=== PATIENT | male | born 1970 | race Caucasian/White ===

== ENCOUNTER → 2016-09-11 | Outpatient (CLI) | payer BC ==
[2016-09-11 08:25] LABS: Basophils % (A) 0 %; CH 25.9; CHCM 31.9; Eosinophils # (A) 0.1 k/uL (0-0.7); Eosinophils % (A) 1 %; HCT 44.3 % (39.0-53.0); HDW 2.79; HGB 14.2 gm/dL (13.0-17.5); Hypochromasia Slight; Luc # (Auto) 0.21; Luc % (Auto) 2; Lymphocytes # (A) 2.2 k/uL (1.0-4.8); Lymphocytes % (A) 22 %; MCH 26.1 pg (25.0-35.0); MCHC 32.1 g/dL (31.0-37.0); MCV 81.5 fL (80.0-100.0); Mean Platelet Volume 6.9; Monocytes # (A) 0.6 k/uL (0-1.0); Monocytes % (A) 6 %; Neutrophils # (A) 6.7 k/uL (1.3-7.7); Neutrophils % (A) 69 %; RBC 5.43 m/uL (4.30-5.90); RDW 14.3 % (11.5-15.5); WBC 9.8 k/uL (3.8-10.6); WBC (Perox) 9.27
[2016-09-11 08:39] LABS: ALT 38 U/L (21-72); AST 25 U/L (17-59); Alkaline Phosphatase 84 U/L (38-126); Anion Gap 9 mmol/L; Blood Urea Nitrogen 23 mg/dL (9-20); Carbon Dioxide 28 mmol/L (22-30); Chloride 103 mmol/L (98-107); Cholesterol 175 mg/dL (<200); Glucose 131 mg/dL (74-99); HDL Cholesterol 38 mg/dL (40-60); Non-African American GFR(MDRD) >60 (>60 ml/min/1.73 sqM); Potassium 4.7 mmol/L (3.5-5.1); Sodium 140 mmol/L (137-145); Total Bilirubin 1.4 mg/dL (0.2-1.3); Total Protein 7.6 g/dL (6.3-8.2); Triglycerides 122 mg/dL (<150)
[2016-09-11 12:41] LABS: Hemoglobin A1C 6.8 % (4.2-6.1)
== END | disposition home or self-care (01) ==
LOC: LABWHC1 07:03
PROVIDERS: ATTEND Internal Medicine
DX: Z00.00 Encounter for general adult medical examination without abnormal findings (principal); E11.9 Type 2 diabetes mellitus without complications; I10 Essential (primary) hypertension; M10.9 Gout, unspecified; M19.90 Unspecified osteoarthritis, unspecified site
CPT/HCPCS: 36415; 80053; 80061; 83036; 84439; 84443; 85025

== ENCOUNTER → 2017-09-16 | Outpatient (CLI) | payer BC ==
[2017-09-16 08:05] LABS: Basophils % (A) 0 %; Eosinophils # (A) 0.1 k/uL (0-0.7); Eosinophils % (A) 1 %; HCT 42.3 % (39.0-53.0); HGB 13.6 gm/dL (13.0-17.5); Lymphocytes # (A) 2.4 k/uL (1.0-4.8); Lymphocytes % (A) 36 %; MCH 25.2 pg (25.0-35.0); MCHC 32.2 g/dL (31.0-37.0); MCV 78.2 fL (80.0-100.0); Mean Platelet Volume 6.2; Monocytes # (A) 0.4 k/uL (0-1.0); Monocytes % (A) 6 %; Neutrophils # (A) 3.5 k/uL (1.3-7.7); Neutrophils % (A) 54 %; Platelet Count 237 k/uL (150-450); RBC 5.41 m/uL (4.30-5.90); RDW 14.8 % (11.5-15.5); WBC 6.6 k/uL (3.8-10.6)
[2017-09-16 08:22] LABS: ALT 43 U/L (21-72); AST 28 U/L (17-59); Albumin 4.6 g/dL (3.5-5.0); Alkaline Phosphatase 64 U/L (38-126); Anion Gap 12 mmol/L; Blood Urea Nitrogen 26 mg/dL (9-20); Calcium 9.8 mg/dL (8.4-10.2); Carbon Dioxide 28 mmol/L (22-30); Chloride 102 mmol/L (98-107); Cholesterol 148 mg/dL (<200); Glucose 125 mg/dL (74-99); HDL Cholesterol 37 mg/dL (40-60); LDL Cholesterol,Calculated 98 mg/dL (0-99); Potassium 4.9 mmol/L (3.5-5.1); Sodium 142 mmol/L (137-145); Total Bilirubin 1.1 mg/dL (0.2-1.3); Triglycerides 65 mg/dL (<150)
[2017-09-16 08:31] LABS: T4, Free (Free Thyroxine) 1.14 ng/dL (0.78-2.19)
[2017-09-16 12:53] LABS: Hemoglobin A1C 6.7 % (4.0-6.0)
== END | disposition home or self-care (01) ==
LOC: LABWHC1 07:08
PROVIDERS: ATTEND Internal Medicine
DX: Z00.00 Encounter for general adult medical examination without abnormal findings (principal); E11.9 Type 2 diabetes mellitus without complications; I10 Essential (primary) hypertension; E78.5 Hyperlipidemia, unspecified
CPT/HCPCS: 36415; 80053; 80061; 83036; 84439; 84443; 85025

== ENCOUNTER → 2018-09-08 | Outpatient (CLI) | payer BC ==
[2018-09-08 08:42] LABS: Basophils % (A) 0 %; Eosinophils # (A) 0.1 k/uL (0-0.7); Eosinophils % (A) 1 %; HCT 43.7 % (39.0-53.0); HGB 13.7 gm/dL (13.0-17.5); Lymphocytes # (A) 2.2 k/uL (1.0-4.8); Lymphocytes % (A) 31 %; MCH 24.9 pg (25.0-35.0); MCHC 31.4 g/dL (31.0-37.0); MCV 79.3 fL (80.0-100.0); Mean Platelet Volume 6.8; Monocytes # (A) 0.5 k/uL (0-1.0); Monocytes % (A) 6 %; Neutrophils # (A) 4.3 k/uL (1.3-7.7); Neutrophils % (A) 59 %; Platelet Count 290 k/uL (150-450); RDW 14.7 % (11.5-15.5); WBC 7.3 k/uL (3.8-10.6)
[2018-09-08 17:18] LABS: Albumin 4.6 g/dL (3.80-4.90); Albumin/Globulin Ratio 2.3 (1.60-3.17); Anion Gap 9.2 mmol/L (4.00-12.00); Calcium 9.8 mg/dL (8.7-10.3); Carbon Dioxide 24.8 mmol/L (21.6-31.8); Potassium 4.6 mmol/L (3.5-5.5); Total Protein 6.6 g/dL (6.2-8.2)
[2018-09-08 17:27] LABS: T4, Free (Free Thyroxine) 1.1 ng/dL (0.80-1.80)
[2018-09-08 19:11] LABS: Hemoglobin A1C 6.5 % (4.0-6.0)
== END | disposition home or self-care (01) ==
LOC: LABWHC1 07:40
PROVIDERS: ATTEND Internal Medicine
DX: Z00.00 Encounter for general adult medical examination without abnormal findings (principal); E78.00 Pure hypercholesterolemia, unspecified; I10 Essential (primary) hypertension; E11.9 Type 2 diabetes mellitus without complications; M19.90 Unspecified osteoarthritis, unspecified site; M10.9 Gout, unspecified; Z12.5 Encounter for screening for malignant neoplasm of prostate
CPT/HCPCS: 84439; 80061; 80053; 84443; 85025; 83036; 36415; G0103

== ENCOUNTER → 2019-03-29 | Outpatient (CLI) | payer BC ==
[2019-03-29 10:37] LABS: HGB 14.1 gm/dL (13.0-17.5); MCH 26.4 pg (25.0-35.0); MCHC 32.7 g/dL (31.0-37.0); MCV 80.6 fL (80.0-100.0); Mean Platelet Volume 7.5; Platelet Count 317 k/uL (150-450); RBC 5.34 m/uL (4.30-5.90); RDW 13.7 % (11.5-15.5); WBC 12.7 k/uL (3.8-10.6)
[2019-03-29 10:43] LABS: Potassium 4.8 mmol/L (3.5-5.1)
== END | disposition home or self-care (01) ==
LOC: LABPAT 09:57
PROVIDERS: ATTEND Internal Medicine Interventional Cardiology
DX: Z01.812 Encounter for preprocedural laboratory examination (principal); R07.9 Chest pain, unspecified
CPT/HCPCS: 36415; 80051; 82565; 84520; 85027

== ENCOUNTER 2019-03-30 06:20 | Day surgery (SDC) | payer BC ==
[2019-03-30] MEDS ORDERED: ALPRAZolam 0.25 MG TAB PO PRN (06:22)
[2019-03-30] MEDS ORDERED: ASPIRIN 325 MG TAB PO STA (06:22)
[2019-03-30] MEDS ORDERED: NITROGLYCERIN SL TABS 0.4 MG TAB SUBLINGUAL PRN ×2 (06:22→08:34)
[2019-03-30] MEDS ORDERED: SODIUM CHLORIDE 0.9% 1,000 ML in EMPTY BAG 1 BAG IV ONE (06:22)
[2019-03-30] MEDS ORDERED: ATORVASTATIN 80 MG TAB PO STA (06:22)
[2019-03-30] MEDS ORDERED: ALPRAZolam 0.5 MG TAB PO PRN (06:22)
[2019-03-30] MEDS ORDERED: ASPIRIN 81 MG ONE (06:46)
[2019-03-30 07:16] LABS: Glucose,Whole Blood 116 mg/dL (75-99)
[2019-03-30] MEDS ORDERED: LIDOCAINE 1% INJ 10MG/ML (20 ML MDV) ONE (07:30)
[2019-03-30] MEDS ORDERED: VERAPAMIL 2.5 MG/ML 2 ML AMP ONE (07:30)
[2019-03-30] MEDS ORDERED: HEPARIN SODIUM 1,000 UN/ML (10ML VL) ONE (07:30)
[2019-03-30] MEDS ORDERED: fentaNYL (PF) 50 MCG/ML 2 ML AMP ONE (07:30)
[2019-03-30] MEDS ORDERED: fentaNYL (PF) 50 MCG/ML 2 ML AMP IVP ONE (07:43)
[2019-03-30] MEDS ORDERED: LIDOCAINE 1% INJ 10MG/ML (20 ML MDV) SQ ONE (07:43)
[2019-03-30] MEDS ORDERED: PRASUGREL 10 MG TAB ONE (08:02)
[2019-03-30] MEDS ORDERED: BIVALIRUDIN BOLUS 250 MG/50 ML IV ONE (08:02)
[2019-03-30] MEDS ORDERED: BIVALIRUDIN 250 MG in SODIUM CHLORIDE 0.9% 50 ML IV ONE (08:03)
[2019-03-30] MEDS ORDERED: PRASUGREL 10 MG TAB PO ONE (08:03)
[2019-03-30] MEDS ORDERED: MIDAZOLAM 2 MG/2 ML VIAL IV ONE (08:04)
[2019-03-30] MEDS ORDERED: IOPAMIDOL-370 125ML BTL INJ ONE (08:11)
[2019-03-30] MEDS ORDERED: IOPAMIDOL-370 100ML BTL INJ ONE (08:28)
[2019-03-30] MEDS ORDERED: ATROPINE SULFATE 0.1 MG/ML 10ML SYRINGE IV PRN (08:34)
[2019-03-30] MEDS ORDERED: MAG HYDROX/AL HYDROX/SIMETH 30 ML CUP PO PRN (08:34)
[2019-03-30] MEDS ORDERED: RX INFO: IV CONTRAST WAS GIVEN 1 EACH MISC MISCELLANE PRN (08:34)
[2019-03-30] MEDS ORDERED: ZOLPIDEM 5 MG TAB PO PRN (08:34)
[2019-03-30] MEDS ORDERED: SODIUM CHLORIDE 0.9% 1,000 ML IV SCH (08:45)
--- NOTE | 2019-03-30 09:16 | CC ---
CARDIAC CATHETERIZATION REPORT Mr. Macias is a 48-year-old male with known history of hypertension, hyperlipidemia, diabetes mellitus, and a family history of premature coronary disease who started this past weekend complaining of chest discomfort, exertional in pattern. In view of that, recommendation was made regarding cardiac catheterization. The procedure as well as the risks and complications were discussed with the patient who is in full understanding and agreement. PROCEDURE: Patient was brought to the labor and delivery registered nurse in a fasting semi-sedated state after receiving fentanyl and Benadryl and achieving moderate conscious sedated state. Using Xylocaine anesthesia in the Seldinger technique, a 6-Argentine sheath was introduced in the right radial artery. Selective right and left coronary angiography performed using 5-Argentine 3.5 bend right and left Jake catheter. Multiple views of the coronary artery including hemiaxial views were obtained. Following that, the left Jake catheter was used to cross the aortic valve and left ventricular end-diastolic pressure was performed. Following that, the catheter was removed. Images were reviewed. FINDINGS: LEFT MAIN: This is a large-size vessel bifurcating in left circumflex, left anterior descending artery. Left main coronary artery has no evidence of high-grade stenosis. LEFT ANTERIOR DESCENDING ARTERY: This is a large-sized vessel reaching toward the apex with a wraparound apex segment giving rise to a large diagonal branch in mid segment. The left anterior descending artery and the mid segment after the takeoff of the first septal childcare administrator has a 95% eccentric lesion. The rest of the vessel has no high-grade stenosis. LEFT CIRCUMFLEX: This is a codominant vessel large in caliber giving rise to 2 obtuse marginal branches distally small PDA and PLV. The left circumflex proximally has a 20% plaque. The rest of the vessel has no high-grade stenosis. RIGHT CORONARY ARTERY: This is a codominant vessel, subtotally occluded in mid segment prior to the bifurcation of PDA. There is ipsilateral collaterals and bridging collaterals noted. There is also contralateral collaterals noted. The distal vessel appears to be small in caliber. LEFT VENTRICULOGRAM: Left ventriculogram was not performed. HEMODYNAMICS: There was no gradient across the aortic valve. The left ventricular end- diastolic pressure was 14 to 16 mmHg. CONCLUSION: 1. Critical stenosis involving the mid left anterior descending artery. 2. Chronically subtotally occluded right coronary artery in the mid segment with ipsilateral and contralateral collaterals. RECOMMENDATION: In view of finding anatomy, I recommend proceeding with angioplasty and stenting of the LAD. The procedure as well as the risks and the complications were discussed with the patient who is in full understanding and agreement. MMRUI / IJN: [id number] /
--- NOTE | 2019-03-30 09:22 | PTCA ---
PERCUTANEOUSTRANS CORORONARY ANGIOGRAPHY Mr. Macias is a 48-year-old male with known history of hypertension, hyperlipidemia, diabetes mellitus, who presented with new onset angina pectoris, underwent cardiac catheterization, was found to have critical stenosis involving the mid LAD. In view of that, recommendation was made regarding angioplasty and stenting. The procedure as well as risks and the complications were discussed with the patient who is in full understanding and agreement. PROCEDURE: Using a 6-Tajik FL3.5 guiding catheter after cannulating the left main a 0.014 balanced medium weight J-wire was advanced across the lesion, positioned distally. Following that, a 3.0 x 12 mm Trek balloon was advanced and one inflation at 8 atmospheres was done. Following that, a 3.5 x 18 mm Xience Sherri stent was deployed, postdilated at 16 atmospheres. Following that, the balloon was removed and a 3.75 x 12 mm NC Trek balloon was advanced and one inflation at 14 atmospheres was done. Following that, the balloon was removed and a 4.0 x 12 mm NC Trek balloon was advanced and inflation at 12 atmospheres was done. After the last inflation, after appropriate wait, the balloon and the guidewire were withdrawn back in the guiding catheter. Images were obtained, repeated. Those images reveal stable successful stenting. At that point, the guiding catheter, the balloon and the guidewire were removed. The sheath was removed. Hemostasis was obtained with deployment of a TR band. There was no immediate complication. Patient was returned to his room in stable condition. Of note, the patient received Angiomax per protocol as well as oral loading dose of Effient. He has received intra-arterial verapamil. He had no chest discomfort or significant EKG changes with the inflations. RESULTS: Successful stenting of the mid left anterior descending artery with reduction of stenosis from 95% to 0%. RECOMMENDATION: Patient will be continued on aspirin, Effient, beta garret, MJ inhibitor, statin. He will be further evaluated down the road to undergo attempt to recanalize the subtotally occluded chronic RCA. Those findings and recommendation were discussed with the patient and his family and they are in full understanding and agreement. Duration of procedure is 45 minutes. MMODL / IJN: [id number] /
--- NOTE | 2019-03-30 09:26 | LTR ---
March 30, 2019 Re: Asaf Macias Dear Dr. Crenshaw: I had the opportunity to perform cardiac catheterization and coronary angioplasty and stenting on Mr. Macias at [facility] on the 30 of March and a full copy of the procedure note will be forwarded to you. In brief, he was found to have a critical stenosis involving the mid LAD and subtotal chronic occlusion of the RCA. He underwent successful stenting of the LAD and he will be further evaluated down the road regarding the need to undergo revascularization of his RCA. I will keep you updated on his progress. Thank you again for allowing me the opportunity to participate in his care. Please feel free to call for any questions. Sincerely yours, MD SANJEEV Shea / TEJAS: [id number] /
[2019-03-30 16:59] LABS: Glucose,Whole Blood 92 mg/dL (75-99)
[2019-03-30] MEDS: METOPROLOL TARTRATE 50 MG TAB PO SCH (20:24)
[2019-03-30 20:44] LABS: Glucose,Whole Blood 153 mg/dL (75-99)
[2019-03-30 22:07] VITALS: RESP 18
[2019-03-31 06:14] LABS: African American GFR (CKD) >90 (>60 ml/min/1.73 sqM); Anion Gap 8 mmol/L; Blood Urea Nitrogen 18 mg/dL (9-20); Calcium 9.7 mg/dL (8.4-10.2); Carbon Dioxide 26 mmol/L (22-30); Chloride 104 mmol/L (98-107); Glucose 126 mg/dL (74-99); Non-African American GFR(CKD) 89 (>60 ml/min/1.73 sqM); Potassium 4.4 mmol/L (3.5-5.1); Sodium 138 mmol/L (137-145)
[2019-03-31 06:32] LABS: Glucose,Whole Blood 119 mg/dL (75-99)
[2019-03-31] MEDS: METOPROLOL TARTRATE 50 MG TAB PO SCH (08:55)
[2019-03-31] MEDS ORDERED: LINAGLIPTIN 5 MG TABLET PO SCH (09:00)
[2019-03-31] MEDS ORDERED: amLODIPine 10 MG TAB PO SCH (09:00)
[2019-03-31] MEDS ORDERED: ATORVASTATIN 80 MG TAB PO SCH (09:00)
[2019-03-31] MEDS ORDERED: LISINOPRIL 10 MG TAB PO SCH (09:00)
[2019-03-31] MEDS ORDERED: PRASUGREL 10 MG TAB PO SCH (09:00)
[2019-03-31] MEDS ORDERED: ASPIRIN 81 MG PO SCH (09:00)
[2019-03-31 10:16] VITALS: BP 111/61; PULSE 73; TEMP 97.8
[2019-03-31 11:05] VITALS: BMI 32.1
[2019-03-31 11:31] LABS: Glucose,Whole Blood 112 mg/dL (75-99)
--- NOTE | 2019-03-31 14:50 | PN ---
PROGRESS NOTE Mr. Macias is a 48-year-old male who presented with symptoms of new onset angina pectoris, underwent cardiac catheterization, was found to have chronically subtotal occlusion of the right coronary artery with critical stenosis in the mid LAD. Underwent successful stenting of the LAD. He is doing well this morning, ambulating without difficulty. Denying any chest pain. No dizziness. No palpitation. He remains in sinus mechanism. Continues to be on aspirin once a day, amlodipine 10 mg daily, Lipitor 80 mg daily, Tradjenta 5 mg daily, Zestril 10 mg daily, metoprolol tartrate 50 mg twice a day, Effient 10 mg daily. PHYSICAL EXAMINATION: Blood pressure 111/60 with a heart rate in the 60s. LUNGS: Clear. HEART: Regular rate and rhythm S1, S2. No S3. No rub. ABDOMEN: Soft, nontender. EXTREMITIES: No edema. Right radial pulse is intact. EKG revealed no evidence of acute changes. BUN and creatinine of 18 and 0.99. IMPRESSION: 1. Status post stenting of the left anterior descending coronary artery. 2. Chronically subtotal occlusion of the right coronary artery. 3. Hypertension. 4. Hyperlipidemia. 5. Diabetes mellitus. RECOMMENDATIONS: Patient will be discharged home today and followed as an outpatient. MMODL / IJN: [id number] /
== END 2019-03-31 11:35 | disposition home or self-care (01) ==
LOC: CATHCVL 06:20 → 3SCARD 08:26 → CATHCVL 03-31 11:35
PROVIDERS: ATTEND Internal Medicine Interventional Cardiology
DX: I25.119 Atherosclerotic heart disease of native coronary artery with unspecified angina pectoris (principal); E11.9 Type 2 diabetes mellitus without complications; I10 Essential (primary) hypertension; E78.2 Mixed hyperlipidemia; Z82.49 Family history of ischemic heart disease and other diseases of the circulatory system; Z79.84 Long term (current) use of oral hypoglycemic drugs; Z79.899 Other long term (current) drug therapy
CPT/HCPCS: 80048; 85347; 93458; C1874

== ENCOUNTER → 2019-10-12 | Outpatient (CLI) | payer BC ==
[2019-10-12 08:41] LABS: Basophils # (A) 0.1 k/uL (0-0.2); Basophils % (A) 1 %; Eosinophils # (A) 0.1 k/uL (0-0.7); Eosinophils % (A) 1 %; HCT 43.7 % (39.0-53.0); HGB 13.7 gm/dL (13.0-17.5); Lymphocytes # (A) 2.7 k/uL (1.0-4.8); Lymphocytes % (A) 28 %; MCH 25.8 pg (25.0-35.0); MCHC 31.3 g/dL (31.0-37.0); MCV 82.5 fL (80.0-100.0); Mean Platelet Volume 7.3; Monocytes # (A) 0.6 k/uL (0-1.0); Monocytes % (A) 6 %; Neutrophils % (A) 62 %; Platelet Count 273 k/uL (150-450); RDW 13.6 % (11.5-15.5); WBC 9.7 k/uL (3.8-10.6)
[2019-10-12 15:14] LABS: African American GFR (CKD) 101.3 (60.0-200.0); Albumin 4.4 g/dL (3.80-4.90); Anion Gap 7.9 mmol/L (4.00-12.00); Calcium 9.7 mg/dL (8.7-10.3); Carbon Dioxide 27.1 mmol/L (21.6-31.8); Chol/HDL Ratio 4.79; Globulin 2.2 g/dL (1.6-3.3); Non-African American GFR(CKD) 87.4 (60.0-200.0); Potassium 4.4 mmol/L (3.5-5.5); Total Bilirubin 1.2 mg/dL (0.3-1.2); Total Protein 6.6 g/dL (6.2-8.2)
[2019-10-12 15:22] LABS: T4, Free (Free Thyroxine) 1.2 ng/dL (0.80-1.80)
[2019-10-12 16:57] LABS: Hemoglobin A1C 7.3 % (4.0-6.0)
== END | disposition home or self-care (01) ==
LOC: LABWHC1 08:00
PROVIDERS: ATTEND Internal Medicine
DX: Z00.00 Encounter for general adult medical examination without abnormal findings (principal); I20.9 Angina pectoris, unspecified; I10 Essential (primary) hypertension; M19.90 Unspecified osteoarthritis, unspecified site; E11.9 Type 2 diabetes mellitus without complications; M10.9 Gout, unspecified; E78.00 Pure hypercholesterolemia, unspecified
CPT/HCPCS: 84439; 80061; 80053; 84443; 85025; 83036; 36415; G0103

== ENCOUNTER → 2020-02-20 | Outpatient (CLI) | payer BC ==
[2020-02-20 15:24] LABS: Chol/HDL Ratio 4.4; LDL Cholesterol,Calculated 66.8 mg/dL (0.0-131.0); VLDL Calculation 18.2 mg/dL (5.00-40.00)
== END | disposition home or self-care (01) ==
LOC: LABWHC1 07:47
PROVIDERS: ATTEND Nurse Practitioner Adult Health
DX: E78.2 Mixed hyperlipidemia (principal)
CPT/HCPCS: 36415; 80061; 84450; 84460

== ENCOUNTER → 2020-07-02 | Outpatient (CLI) | payer BC ==
[2020-07-03 05:06] LABS: African American GFR (CKD) 100.6 (60.0-200.0); Albumin 4.9 g/dL (3.80-4.90); Albumin/Globulin Ratio 2.45 (1.60-3.17); Anion Gap 12.3 mmol/L (4.00-12.00); Calcium 9.9 mg/dL (8.7-10.3); Carbon Dioxide 24.7 mmol/L (21.6-31.8); Chol/HDL Ratio 4.75; LDL Cholesterol,Calculated 64.2 mg/dL (0.0-131.0); Non-African American GFR(CKD) 86.8 (60.0-200.0); Potassium 4.5 mmol/L (3.5-5.5); Total Bilirubin 1.2 mg/dL (0.3-1.2); Total Protein 6.9 g/dL (6.2-8.2); VLDL Calculation 25.8 mg/dL (5.00-40.00)
== END | disposition home or self-care (01) ==
LOC: LABWHC1 10:04
PROVIDERS: ATTEND Nurse Practitioner Adult Health
DX: E78.2 Mixed hyperlipidemia (principal); I10 Essential (primary) hypertension
CPT/HCPCS: 36415; 80053; 80061

== ENCOUNTER → 2021-01-23 | Outpatient (CLI) | payer BC ==
[2021-01-23 11:14] LABS: Basophils # (A) 0.03 X 10*3/uL (0.00-0.10); Basophils % (A) 0.4 %; Eosinophils # (A) 0.09 X 10*3/uL (0.04-0.35); Eosinophils % (A) 1.1 %; HCT 43.4 % (39.6-50.0); HGB 13.8 g/dL (13.0-17.0); Lymphocytes # (A) 2.38 X 10*3/uL (0.90-5.00); Lymphocytes % (A) 28.5 %; MCH 25.1 pg (27.0-32.0); MCHC 31.8 g/dL (32.0-37.0); MCV 79.1 fL (80.0-97.0); Mean Platelet Volume 10.5 fL (9.5-12.2); Monocytes # (A) 0.66 X 10*3/uL (0.20-1.00); Monocytes % (A) 7.9 %; Neutrophils # (A) 5.16 X 10*3/uL (1.80-7.70); Neutrophils % (A) 61.6 %; Platelet Count 306 X 10*3/uL (140-440); RBC 5.49 X 10*6/uL (4.40-5.60); RDW 13.8 % (11.5-14.5); WBC 8.36 X 10*3/uL (4.50-10.00)
[2021-01-23 19:26] LABS: African American GFR (CKD) 109.6 (60.0-200.0); Albumin 4.5 g/dL (3.8-4.9); Albumin/Globulin Ratio 1.91 (1.60-3.17); Anion Gap 17.9 mmol/L (4.00-12.00); BUN/Creat Ratio 26.85 Ratio (12.00-20.00); Carbon Dioxide 18.6 mmol/L (21.6-31.8); Chol/HDL Ratio 5.29 Ratio; Globulin 2.4 g/dL (1.6-3.3); HDL Cholesterol 24.2 mg/dL (40.00-60.00); LDL Cholesterol,Calculated 59.4 mg/dL (0.0-131.0); Non-African American GFR(CKD) 94.6 (60.0-200.0); Potassium 4.9 mmol/L (3.5-5.5); Prostate Specific Antigen 0.5 ng/mL (0.00-3.50); T4, Free (Free Thyroxine) 1.25 ng/dL (0.800-1.800); Total Bilirubin 0.7 mg/dL (0.30-1.20); Total Protein 6.9 g/dL (6.2-8.2); VLDL Calculation 44.4 mg/dL (5.00-40.00)
== END | disposition home or self-care (01) ==
LOC: LABWHC1 07:03
PROVIDERS: ATTEND Internal Medicine
DX: Z00.00 Encounter for general adult medical examination without abnormal findings (principal); I10 Essential (primary) hypertension; E78.2 Mixed hyperlipidemia
CPT/HCPCS: 36415; 80053; 80061; 83036; 84153; 84439; 84443; 85025

== ENCOUNTER → 2021-02-25 | Outpatient (CLI) | payer BC ==
[2021-02-25 17:54] LABS: Albumin 4.7 g/dL (3.8-4.9); Anion Gap 16.3 mmol/L (4.00-12.00); BUN/Creat Ratio 22.21 Ratio (12.00-20.00); Blood Urea Nitrogen 21.1 mg/dL (9.0-27.0); Calcium 9.8 mg/dL (8.7-10.3); Carbon Dioxide 20.6 mmol/L (21.6-31.8); Globulin 2.3 g/dL (1.6-3.3); Non-African American GFR(CKD) 92.3 (60.0-200.0); Potassium 5.1 mmol/L (3.5-5.5); Total Bilirubin 0.8 mg/dL (0.30-1.20)
[2021-02-26 13:27] LABS: C-Peptide 3.88 ng/mL (0.81-3.85)
== END | disposition home or self-care (01) ==
LOC: LABWHC1 10:03
PROVIDERS: ATTEND Internal Medicine Endocrinology, Diabetes & Metabolism
DX: E11.65 Type 2 diabetes mellitus with hyperglycemia (principal)
CPT/HCPCS: 36415; 80053; 84681

== ENCOUNTER → 2021-09-04 | Outpatient (CLI) | payer BC ==
[2021-09-04 11:17] LABS: ALT 28 U/L (10-49); AST 21 U/L (14-35); African American GFR (CKD) 102.8 (60.0-200.0); Albumin 4.5 g/dL (3.8-4.9); Albumin/Globulin Ratio 1.92 (1.60-3.17); Alkaline Phosphatase 78 U/L (41-126); BUN/Creat Ratio 18.85 Ratio (12.00-20.00); Blood Urea Nitrogen 18.4 mg/dL (9.0-27.0); Calcium 9.7 mg/dL (8.7-10.3); Carbon Dioxide 24.5 mmol/L (20.0-27.5); Chloride 102 mmol/L (96-109); Chol/HDL Ratio 3.77 Ratio; Globulin 2.4 g/dL (1.6-3.3); Glucose 140 mg/dL (70-110); LDL Cholesterol,Calculated 58.7 mg/dL (0.0-131.0); Non-African American GFR(CKD) 88.7 (60.0-200.0); Potassium 4.7 mmol/L (3.5-5.5); Sodium 139 mmol/L (135-145); Total Protein 6.9 g/dL (6.2-8.2); VLDL Calculation 17.68 mg/dL (5.00-40.00)
[2021-09-04 17:05] LABS: Urine Creatinine 65.7 mg/dL (39.0-259.0)
== END | disposition home or self-care (01) ==
LOC: LABWHC1 07:01
PROVIDERS: ATTEND Internal Medicine Endocrinology, Diabetes & Metabolism
DX: E11.65 Type 2 diabetes mellitus with hyperglycemia (principal)
CPT/HCPCS: 36415; 80053; 80061; 82043; 82570; 83036; 84443

== ENCOUNTER 2021-12-29 07:17 | Day surgery (SDC) | payer BC ==
[~2021-12-29 07:17] MED LIST: LACTATED RINGERS 1,000 ML IV SCH
[2021-12-29 07:39] VITALS: TEMP 97.8
[2021-12-29 07:47] LABS: Glucose,Whole Blood 130 mg/dL (70-110)
[2021-12-29] MEDS ORDERED: PROPOFOL 10 MG/ML 20 ML VIAL IV ONE (08:04)
--- NOTE | 2021-12-29 08:07 | P.GSHP ---
History of Present Illness H&P Date: 12/29/21 Chief Complaint: Colon cancer screening [id number] male here today for colonoscopy. He has not had one previously. No bowel complaints. No family history of colon cancer. Past Medical History Past Medical History: Cancer, Diabetes Mellitus, Hyperlipidemia, Hypertension Additional Past Medical History / Comment(s): skin cancer, hx gout History of Any Multi-Drug Resistant Organisms: None Reported Past Surgical History: Heart Catheterization With Stent, Hernia Repair, Joint Replacement Additional Past Surgical History / Comment(s): miguel hip replacements, heart cath with sent LAD-x1 03/30/2019 Past Anesthesia/Blood Transfusion Reactions: Previous Problems w/ Anesthesia, Postoperative Nausea & Vomiting (PONV) Additional Past Anesthesia/Blood Transfusion Reaction / Comment(s): trouble urinating after few of his surgeries Date of Last Stent Placement:: 2018 Smoking Status: Never smoker - Past Family History Father Family Medical History: Coronary Artery Disease (CAD), Diabetes Mellitus Additional Family Medical History / Comment(s): CABG x4 Mother Family Medical History: Congestive Heart Failure (CHF), Diabetes Mellitus Medications and Allergies Home Medications Medication Instructions Recorded Confirmed Type metFORMIN HCL [Glucophage] 1,000 mg PO BID 01/29/15 12/24/21 History Aspirin [Adult Low Dose Aspirin EC] 81 mg PO DAILY 03/29/19 12/29/21 History Metoprolol Tartrate [Lopressor] 50 mg PO BID 03/29/19 12/29/21 History Nitroglycerin Sl Tabs [Nitrostat] 0.4 mg SUBLINGUAL Q5M PRN 03/29/19 12/24/21 History amLODIPine [Norvasc] 10 mg PO DAILY 03/29/19 12/24/21 History lisinopriL [Zestril] 10 mg PO DAILY 03/29/19 12/24/21 History sitaGLIPtin [Januvia] 100 mg PO DAILY 03/29/19 12/24/21 History Atorvastatin [Lipitor] 80 mg PO DAILY 12/24/21 12/24/21 History Empagliflozin [Jardiance] 25 mg PO DAILY 12/24/21 12/24/21 History Ezetimibe [Zetia] 10 mg PO DAILY 12/24/21 12/24/21 History Allergies Allergy/AdvReac Type Severity Reaction Status Date / Time No Known Allergies Allergy Verified 12/29/21 07:39 Surgical - Exam Vital Signs Temp Pulse Resp BP Pulse Ox 97.8 F 62 16 137/78 97 12/29/21 07:38 12/29/21 07:38 12/29/21 07:38 12/29/21 07:38 12/29/21 07:38 Physical exam: General: Well-developed, well-nourished HEENT: Normocephalic, sclerae nonicteric Abdomen: Nontender, nondistended Extremities: No edema Neuro: Alert and oriented Results - Labs Abnormal Lab Results - Last 24 Hours (Table) 12/29/21 Range/Units 07:43 POC Glucose (mg/dL) 130 H (70-110) mg/dL Assessment and Plan (1) Colon cancer screening Narrative/Plan: Will proceed with colonoscopy at this time Current Visit: Yes Status: Acute Code(s): Z12.11 - ENCOUNTER FOR SCREENING FOR MALIGNANT NEOPLASM OF COLON SNOMED Code(s): 535701913
--- NOTE | 2021-12-29 08:20 | P.PCN ---
Date of Procedure: 12/29/21 Procedure(s) Performed: PREOPERATIVE DIAGNOSIS: Colon cancer screening POSTOPERATIVE DIAGNOSIS: Normal exam PROCEDURE: Colonoscopy ANESTHESIA: MAC SURGEON: Geoff Madera M.D. SPECIMENS: None ENDOSCOPIC PROCEDURE: The patient was placed on the endoscopy table in the left decubitus position. The Olympus colonoscope was inserted into the anus and passed under direct visualization to the base of the cecum. The appendiceal orifice was visualized. From that point the scope was slowly withdrawn inspecti ng all surfaces carefully. There were no neoplastic inflammatory or polypoid lesions throughout the cecum, ascending, transverse, descending, sigmoid and rectum. There was no visible diverticulosis noted. Digital rectal examination was normal. The patient was taken to the recovery room in stable condition per anesthesia guidelines. RECOMMENDATIONS: Resume diet. Follow colonoscopy 10 years.
[2021-12-29 08:48] VITALS: BP 108/72; PULSE 68; RESP 20
== END 2021-12-29 08:55 | disposition home or self-care (01) ==
LOC: ORWHC2ENDO 07:17
PROVIDERS: ATTEND Surgery
DX: Z12.11 Encounter for screening for malignant neoplasm of colon (principal); E11.9 Type 2 diabetes mellitus without complications; E78.5 Hyperlipidemia, unspecified; I10 Essential (primary) hypertension; K91.0 Vomiting following gastrointestinal surgery; Z95.5 Presence of coronary angioplasty implant and graft; Z98.890 Other specified postprocedural states; Z90.89 Acquired absence of other organs; Z83.3 Family history of diabetes mellitus; Z82.49 Family history of ischemic heart disease and other diseases of the circulatory system; Z95.1 Presence of aortocoronary bypass graft; Z79.84 Long term (current) use of oral hypoglycemic drugs; Z79.82 Long term (current) use of aspirin; Z79.899 Other long term (current) drug therapy; Z85.828 Personal history of other malignant neoplasm of skin; Z87.39 Personal history of other diseases of the musculoskeletal system and connective tissue
CPT/HCPCS: 45378; J2704

== ENCOUNTER → 2022-01-12 | Outpatient (CLI) | payer BC ==
[2022-01-12 10:40] LABS: Basophils # (A) 0.03 X 10*3/uL (0.00-0.10); Basophils % (A) 0.4 %; Eosinophils # (A) 0.18 X 10*3/uL (0.04-0.35); Eosinophils % (A) 2.3 %; HCT 45.2 % (39.6-50.0); HGB 14.3 g/dL (13.0-17.0); Immature Grans, Automated 0.3 %; Lymphocytes # (A) 2.45 X 10*3/uL (0.90-5.00); Lymphocytes % (A) 31.3 %; MCH 25.5 pg (27.0-32.0); MCHC 31.6 g/dL (32.0-37.0); MCV 80.6 fL (80.0-97.0); Mean Platelet Volume 10.5 fL (9.5-12.2); Monocytes # (A) 0.71 X 10*3/uL (0.20-1.00); Monocytes % (A) 9.1 %; NRBC Per 100 WBC 0 /100 WBCS (0.0-0.0); Neutrophils # (A) 4.44 X 10*3/uL (1.80-7.70); Neutrophils % (A) 56.6 %; Platelet Count 341 X 10*3/uL (140-440); RBC 5.61 X 10*6/uL (4.40-5.60); RDW 15.2 % (11.5-14.5); WBC 7.83 X 10*3/uL (4.50-10.00)
[2022-01-12 10:59] LABS: ALT 28 U/L (10-49); AST 21 U/L (14-35); African American GFR (CKD) 99.8 (60.0-200.0); Albumin 4.7 g/dL (3.8-4.9); Albumin/Globulin Ratio 1.68 (1.60-3.17); Alkaline Phosphatase 78 U/L (41-126); Blood Urea Nitrogen 22.3 mg/dL (9.0-27.0); Calcium 9.4 mg/dL (8.7-10.3); Carbon Dioxide 25.3 mmol/L (20.0-27.5); Chloride 100 mmol/L (96-109); Chol/HDL Ratio 4.23 Ratio; Globulin 2.8 g/dL (1.6-3.3); Glucose 136 mg/dL (70-110); LDL Cholesterol,Calculated 69.8 mg/dL (0.0-131.0); Non-African American GFR(CKD) 86.2 (60.0-200.0); Potassium 4.4 mmol/L (3.5-5.5); Sodium 137 mmol/L (135-145); Total Protein 7.5 g/dL (6.2-8.2); VLDL Calculation 15.72 mg/dL (5.00-40.00)
== END | disposition home or self-care (01) ==
LOC: LABWHC1 07:01
PROVIDERS: ATTEND Internal Medicine Interventional Cardiology
DX: I10 Essential (primary) hypertension (principal); E78.2 Mixed hyperlipidemia
CPT/HCPCS: 36415; 80053; 80061; 83036; 84439; 84443; 85025

== ENCOUNTER → 2022-07-02 | Outpatient (CLI) | payer BC ==
[2022-07-02 10:51] LABS: ALT 33 U/L (10-49); AST 25 U/L (14-35); Albumin 4.5 g/dL (3.8-4.9); Alkaline Phosphatase 88 U/L (41-126); BUN/Creat Ratio 22.08 Ratio (12.00-20.00); Blood Urea Nitrogen 22.3 mg/dL (9.0-27.0); Carbon Dioxide 26.1 mmol/L (20.0-27.5); Chloride 102 mmol/L (96-109); Chol/HDL Ratio 3.95 Ratio; Globulin 2.8 g/dL (1.6-3.3); Glucose 135 mg/dL (70-110); LDL Cholesterol,Calculated 52.6 mg/dL (0.0-131.0); Non-African American GFR(CKD) 84.5 (60.0-200.0); Potassium 4.7 mmol/L (3.5-5.5); Sodium 139 mmol/L (135-145); Total Protein 7.2 g/dL (6.2-8.2)
== END | disposition home or self-care (01) ==
LOC: LABWHC1 06:45
PROVIDERS: ATTEND Internal Medicine Interventional Cardiology
DX: E78.2 Mixed hyperlipidemia (principal)
CPT/HCPCS: 36415; 80053; 80061

== ENCOUNTER → 2022-12-11 | Outpatient (CLI) | payer BC ==
[2022-12-11 13:56] LABS: ALT 28 U/L (10-49); AST 26 U/L (14-35); Albumin 4.5 d/dL (3.8-4.9); Albumin/Globulin Ratio 2.05 Ratio (1.60-3.17); Alkaline Phosphatase 78 U/L (41-126); BUN/Creat Ratio 19.44 Ratio (12.00-20.00); Blood Urea Nitrogen 17.5 mg/dL (9.0-27.0); Calcium 9.9 mg/dL (8.7-10.3); Carbon Dioxide 24.3 mmol/L (21.6-31.8); Chloride 103 mmol/L (96-109); Chol/HDL Ratio 2.87 Ratio; Globulin 2.2 d/dL (1.6-3.3); Glucose 110 mg/dL (70-110); LDL Cholesterol,Calculated 42.5 mg/dL (0.0-131.0); Potassium 4.7 mmol/L (3.5-5.5); Sodium 140 mmol/L (135-145); Total Bilirubin 1.2 mg/dL (0.3-1.2); Total Protein 6.7 d/dL (6.2-8.2)
== END | disposition home or self-care (01) ==
LOC: LABWHC1 08:11
PROVIDERS: ATTEND Internal Medicine Interventional Cardiology
DX: E78.2 Mixed hyperlipidemia (principal)
CPT/HCPCS: 36415; 80053; 80061

== ENCOUNTER → 2022-12-20 | Outpatient (CLI) | payer BC ==
[2022-12-20 21:17] LABS: Basophils # (A) 0.04 X 10*3/uL (0.00-0.10); Basophils % (A) 0.4 %; Eosinophils # (A) 0.05 X 10*3/uL (0.04-0.35); Eosinophils % (A) 0.6 %; HCT 45.9 % (39.6-50.0); HGB 14.5 d/dL (13.0-17.0); Lymphocytes % (A) 33.1 %; MCH 25.9 pg (27.0-32.0); MCHC 31.6 d/dL (32.0-37.0); MCV 82.1 FL (80.0-97.0); Mean Platelet Volume 10.5 FL (9.5-12.2); Monocytes # (A) 0.76 X 10*3/uL (0.20-1.00); Monocytes % (A) 8.4 %; NRBC Per 100 WBC 0 X 10*3/uL (0.00-0.01); Neutrophils # (A) 5.16 X 10*3/uL (1.80-7.70); Neutrophils % (A) 57.1 %; Platelet Count 302 X 10*3/uL (140-440); RBC 5.59 X 10*6/uL (4.40-5.60); RDW 14.9 % (11.5-14.5); WBC 9.05 X 10*3/uL (4.50-10.00)
== END | disposition home or self-care (01) ==
LOC: LABWHC1 16:05
PROVIDERS: ATTEND Internal Medicine
DX: Z12.5 Encounter for screening for malignant neoplasm of prostate (principal); E11.9 Type 2 diabetes mellitus without complications
CPT/HCPCS: 36415; 83036; 84153; 85025

== ENCOUNTER → 2023-06-10 | Outpatient (CLI) | payer BC ==
[2023-06-10 11:55] LABS: ALT 28 U/L (10-49); AST 20 U/L (14-35); Albumin 4.6 g/dL (3.8-4.9); Albumin/Globulin Ratio 1.77 Ratio (1.60-3.17); Alkaline Phosphatase 92 U/L (41-126); Blood Urea Nitrogen 26.7 mg/dL (9.0-27.0); Calcium 10.5 mg/dL (8.7-10.3); Carbon Dioxide 24.6 mmol/L (21.6-31.8); Chloride 99 mmol/L (96-109); Chol/HDL Ratio 3.37 Ratio; Globulin 2.6 g/dL (1.6-3.3); Glucose 117 mg/dL (70-110); LDL Cholesterol,Calculated 55.2 mg/dL (0.0-131.0); Sodium 139 mmol/L (135-145); Total Bilirubin 1.4 mg/dL (0.3-1.2); Total Protein 7.2 g/dL (6.2-8.2)
[2023-06-10 12:43] LABS: Urine Creatinine 85.4 mg/dL (39.0-259.0)
== END | disposition home or self-care (01) ==
LOC: LABWHC1 06:56
PROVIDERS: ATTEND Internal Medicine Endocrinology, Diabetes & Metabolism
DX: E11.65 Type 2 diabetes mellitus with hyperglycemia (principal)
CPT/HCPCS: 36415; 80053; 80061; 82043; 82570; 83036; 84443

== ENCOUNTER → 2023-12-16 | Outpatient (CLI) | payer BC ==
[2023-12-16 10:56] LABS: Basophils # (A) 0.04 X 10*3/uL (0.00-0.10); Basophils % (A) 0.6 %; Eosinophils # (A) 0.09 X 10*3/uL (0.04-0.35); Eosinophils % (A) 1.3 %; HGB 15.5 g/dL (13.0-17.0); Lymphocytes # (A) 2.76 X 10*3/uL (0.90-5.00); Lymphocytes % (A) 39.4 %; MCH 25.8 pg (27.0-32.0); MCHC 31.6 g/dL (32.0-37.0); MCV 81.5 FL (80.0-97.0); Mean Platelet Volume 10.6 FL (9.5-12.2); Monocytes # (A) 0.63 X 10*3/uL (0.20-1.00); NRBC Per 100 WBC 0 X 10*3/uL (0.00-0.01); Neutrophils # (A) 3.46 X 10*3/uL (1.80-7.70); Neutrophils % (A) 49.3 %; Platelet Count 284 X 10*3/uL (140-440); RBC 6.01 X 10*6/uL (4.40-5.60); RDW 14.3 % (11.5-14.5); WBC 7.01 X 10*3/uL (4.50-10.00)
[2023-12-16 12:07] LABS: ALT 26 U/L (10-49); AST 23 U/L (14-35); Albumin 4.8 g/dL (3.8-4.9); Albumin/Globulin Ratio 2.09 Ratio (1.60-3.17); Alkaline Phosphatase 83 U/L (41-126); Blood Urea Nitrogen 23.9 mg/dL (9.0-27.0); Calcium 10.1 mg/dL (8.7-10.3); Carbon Dioxide 25.7 mmol/L (21.6-31.8); Chloride 100 mmol/L (96-109); Chol/HDL Ratio 3.94 Ratio; Globulin 2.3 g/dL (1.6-3.3); Glucose 120 mg/dL (70-110); LDL Cholesterol,Calculated 63.2 mg/dL (0.0-131.0); Sodium 139 mmol/L (135-145); T4, Free (Free Thyroxine) 1.24 ng/dL (0.80-1.80); Total Bilirubin 1.1 mg/dL (0.3-1.2); Total Protein 7.1 g/dL (6.2-8.2)
== END | disposition home or self-care (01) ==
LOC: LABWHC1 07:01
PROVIDERS: ATTEND Internal Medicine
DX: Z00.00 Encounter for general adult medical examination without abnormal findings (principal); I10 Essential (primary) hypertension; E78.00 Pure hypercholesterolemia, unspecified; E11.9 Type 2 diabetes mellitus without complications; I25.10 Atherosclerotic heart disease of native coronary artery without angina pectoris
CPT/HCPCS: 36415; 80053; 80061; 82306; 83036; 84439; 84443; 85025

== ENCOUNTER → 2024-06-19 | Outpatient (CLI) | payer BC ==
[2024-06-19 12:56] LABS: ALT 28 U/L (10-49); AST 21 U/L (14-35); Chol/HDL Ratio 3.33 Ratio; LDL Cholesterol,Calculated 59.1 mg/dL (0.0-131.0); VLDL Calculation 15.78 mg/dL (5.00-40.00)
== END | disposition home or self-care (01) ==
LOC: LABWHC1 07:14
PROVIDERS: ATTEND Internal Medicine Interventional Cardiology
DX: E78.2 Mixed hyperlipidemia (principal)
CPT/HCPCS: 36415; 80061; 84450; 84460

== ENCOUNTER → 2024-07-26 | Outpatient (CLI) | payer BC ==
[2024-07-26 10:37] LABS: ALT 30 U/L (10-49); AST 24 U/L (14-35); Albumin 4.3 g/dL (3.8-4.9); Albumin/Globulin Ratio 1.79 Ratio (1.60-3.17); Alkaline Phosphatase 86 U/L (41-126); Blood Urea Nitrogen 23.1 mg/dL (9.0-27.0); Calcium 9.9 mg/dL (8.7-10.3); Carbon Dioxide 25.7 mmol/L (21.6-31.8); Chloride 105 mmol/L (96-109); Globulin 2.4 g/dL (1.6-3.3); Glucose 131 mg/dL (70-110); LDL Cholesterol,Calculated 51.1 mg/dL (0.0-131.0); Potassium 4.2 mmol/L (3.5-5.5); Sodium 142 mmol/L (135-145); Total Bilirubin 0.8 mg/dL (0.3-1.2); Total Protein 6.7 g/dL (6.2-8.2); VLDL Calculation 15.28 mg/dL (5.00-40.00)
== END | disposition home or self-care (01) ==
LOC: LABWHC1 07:04
PROVIDERS: ATTEND Internal Medicine Endocrinology, Diabetes & Metabolism
DX: E11.65 Type 2 diabetes mellitus with hyperglycemia (principal)
CPT/HCPCS: 36415; 80053; 80061; 82043; 82570; 83036; 84443